=== PATIENT | female | born 1940 | race Caucasian/White ===

== ENCOUNTER → 2019-01-29 | Outpatient (CLI) | payer MEDICARE, BC | LOC: CARD 08:42 | PROVIDERS: ATTEND Family Medicine | DX: I10 Essential (primary) hypertension (principal); E11.69 Type 2 diabetes mellitus with other specified complication; R01.1 Cardiac murmur, unspecified; I08.3 Combined rheumatic disorders of mitral, aortic and tricuspid valves | CPT/HCPCS: 93306 ==

== ENCOUNTER → 2020-01-29 | Outpatient (CLI) | payer MEDICARE, BC ==
--- NOTE | 2020-01-29 14:55 | Diagnostic Imaging Report ---
INDICATION: Left hip pain. TIME OF EXAM: 02:25 p.m. FINDINGS: Two views of the left hip demonstrate normal femoral acetabular alignment. There is some medial and superior joint space narrowing compatible with degenerative change. No fractures are identified. Left-sided rami are intact. IMPRESSION: Mild degenerative changes. No acute bony abnormality is detected. Dictated by: Dictated on workstation # [id number]
--- NOTE | 2020-01-29 14:55 | Diagnostic Imaging Report ---
INDICATION: Left hip pain. TIME OF EXAM: 02:29 p.m. FINDINGS: Oblique views of the sacroiliac joints were performed. Sacroiliac joints appear unremarkable. No sclerosis, osseous erosion, or ankylosis is detected. There are postop changes of posterior instrumented fusion in the lower lumbar spine. Hardware appears to be intact. IMPRESSION: No acute feature is detected. Dictated by: Dictated on workstation # [id number]
== END ==
LOC: RAD FS 14:15
PROVIDERS: ATTEND Nurse Practitioner Family
DX: M16.12 Unilateral primary osteoarthritis, left hip (principal); M54.32 Sciatica, left side
CPT/HCPCS: 72202; 73502

== ENCOUNTER → 2022-09-11 | Outpatient (CLI) | payer MEDICARE, BC | LOC: CARDFS 12:32 | PROVIDERS: ATTEND Family Medicine | DX: I35.0 Nonrheumatic aortic (valve) stenosis (principal); E11.69 Type 2 diabetes mellitus with other specified complication | CPT/HCPCS: 93306 ==